=== PATIENT | male | born 1995 | race African-American/Black ===

== ENCOUNTER 2017-08-17 10:15 | Emergency (ER) | payer MEDICAID, OTHER ==
[~2017-08-17 10:15] MED LIST: Z.0.NO CURRENT MEDS
[2017-08-17] MEDS ORDERED: IOHEXOL 350 MG/ML 10 ML VIAL (for RAD DIAG) IVCONTRAST ONE (10:16)
[2017-08-17 10:17] VITALS: BP 159/71; PULSE 83; RESP 15; TEMP 98.7; O2SAT 97
[2017-08-17] MEDS ORDERED: SODIUM CHLORIDE 0.9% FLUSH 10 ML FLUSH IVF PRN (10:30)
[2017-08-17] MEDS ORDERED: HYDR-3516 PO (10:47)
[2017-08-17 10:54] LABS: AUTOMATED NEUTROPHIL # 2.6 TH/MM3 (1.8-7.7); BASOPHIL % 0.9 % (0.0-2.0); EOSINOPHIL # 0.2 TH/MM3 (0-0.4); EOSINOPHIL % 3.4 % (0.0-4.0); HEMATOCRIT 39.4 % (39.0-51.0); HEMO FLAGS DIFF FINAL; LYMPH % 35.1 % (9.0-44.0); LYMPHOCYTE # 1.8 TH/MM3 (1.0-4.8); MEAN CELL VOLUME 90.3 FL (80.0-100.0); MEAN CORPUSCULAR HEMOGLOBIN 29.1 PG (27.0-34.0); MEAN CORPUSCULAR HGB CONC 32.3 % (32.0-36.0); MONO % 9.4 % (0.0-8.0); NEUT % 51.2 % (16.0-70.0); PLATELET COUNT 241 TH/MM3 (150-450); RED BLOOD COUNT 4.37 MIL/MM3 (4.50-5.90); RED CELL DISTRIBUTION WIDTH 12.1 % (11.6-17.2)
--- NOTE | 2017-08-17 10:54 | PD ---
HPI . Lower abdominal pain Chief Complaint: GI Complaint Time Seen by Provider: 10:51 Travel History International Travel<30 days: No Contact w/Intl Traveler<30days: No Traveled to known affect area: No History of Present Illness HPI This patient presents with a chief complaint of lower abdominal pain for 4 days. He reports associated bloody diarrhea. He had emesis today. He states that the symptoms come and go. He is actually not currently having any symptoms. He reports that he was seen at an outside facility and was told that he had a viral syndrome. He states that they did not give him any antibiotics or any other medications. He subsequently presents to us. His abdominal pain is described as crampy and he rates it as 7-9/10. He has not noted any modifying factors. The patient reported to me that he was not given any medications the outside facility. The triage nurse learned that he was given a prescription for hydrocodone. PFSH Past Medical History Anemia: Yes Diminished Hearing: No Immunizations Current: Yes ?: Not Social History Alcohol Use: No Tobacco Use: No Substance Use: No Allergies-Medications (Allergen,Severity, Reaction): Coded Allergies: aspirin (Verified Allergy, Unknown, HIVES, 08/17/17) citric acid (Verified Allergy, Unknown, HIVES, 08/17/17) sodium bicarbonate (Verified Allergy, Unknown, HIVES, 08/17/17) Reported Meds & Prescriptions Reported Meds & Active Scripts Active Reported Hydrocodone-Acetaminophen 5-325 mg Tab 1 Tab PO Q6H PRN Review of Systems Except as stated in HPI: all other systems reviewed are Neg General / Constitutional: No: Fever, Chills Gastrointestinal: Positive: Nausea, Vomiting, Diarrhea, Abdominal Pain, Hematochezia Genitourinary: No: Urgency, Frequency, Dysuria Physical Exam Narrative GENERAL: Patient is awake and alert and does not appear to be in any distress. SKIN: warm/dry. No rashes. HEAD: Normocephalic. Atraumatic. EYES: Pupils equal and round. No scleral icterus. No injection or drainage. ENT: No nasal bleeding or discharge. Mucous membranes pink and moist. NECK: Trachea midline. Full range of motion without pain.. CARDIOVASCULAR: Regular rate and rhythm. Heart sounds are normal. RESPIRATORY: No accessory muscle use. Clear to auscultation. Breath sounds equal bilaterally. GASTROINTESTINAL: Abdomen soft. Nontender. Bowel sounds present. Nondistended. RECTAL: Technically difficult secondary to patient cooperation. No hemorrhoids noted. There was no significant stool in the rectal vault. MUSCULOSKELETAL: No obvious deformities. NEUROLOGICAL: Awake and alert. No obvious cranial nerve deficits. Motor grossly within normal limits. Normal speech. PSYCHIATRIC: Appropriate mood and affect; insight and judgment normal. Data Data Last Documented VS Vital Signs Date Time Temp Pulse Resp B/P (MAP) Pulse Ox O2 Delivery O2 Flow Rate FiO2 08/17/17 13:04 86 16 134/73 (93) 100 Room Air 08/17/17 10:17 98.7 Orders Orders Basic Metabolic Panel (Bmp) (08/17/17 10:26) Complete Blood Count With Diff (08/17/17 10:26) Prothrombin Time / Inr (Pt) (08/17/17 10:26) Act Partial Throm Time (Ptt) (08/17/17 10:26) Iv Access Insert/Monitor (08/17/17 10:26) Sodium Chloride 0.9% Flush (Ns Flush) (08/17/17 10:30) Ct Abd/Pel W Iv Contrast(Rout) (08/17/17 10:26) Iohexol 350 Inj (Omnipaque 350 Inj) (08/17/17 10:16) Labs Laboratory Tests Test 08/17/17 10:35 White Blood Count 5.0 TH/MM3 Red Blood Count 4.37 MIL/MM3 Hemoglobin 12.7 GM/DL Hematocrit 39.4 % Mean Corpuscular Volume 90.3 FL Mean Corpuscular Hemoglobin 29.1 PG Mean Corpuscular Hemoglobin Concent 32.3 % Red Cell Distribution Width 12.1 % Platelet Count 241 TH/MM3 Mean Platelet Volume 8.4 FL Neutrophils (%) (Auto) 51.2 % Lymphocytes (%) (Auto) 35.1 % Monocytes (%) (Auto) 9.4 % Eosinophils (%) (Auto) 3.4 % Basophils (%) (Auto) 0.9 % Neutrophils # (Auto) 2.6 TH/MM3 Lymphocytes # (Auto) 1.8 TH/MM3 Monocytes # (Auto) 0.5 TH/MM3 Eosinophils # (Auto) 0.2 TH/MM3 Basophils # (Auto) 0.0 TH/MM3 CBC Comment DIFF FINAL Differential Comment Prothrombin Time 11.4 SEC Prothromb Time International Ratio 1.0 RATIO Activated Partial Thromboplast Time 28.5 SEC Blood Urea Nitrogen 7 MG/DL Creatinine 0.96 MG/DL Random Glucose 89 MG/DL Calcium Level 9.5 MG/DL Sodium Level 139 MEQ/L Potassium Level 3.5 MEQ/L Chloride Level 104 MEQ/L Carbon Dioxide Level 27.0 MEQ/L Anion Gap 8 MEQ/L Estimat Glomerular Filtration Rate 119 ML/MIN MDM Medical Decision Making Medical Screen Exam Complete: Yes Emergency Medical Condition: Yes Differential Diagnosis Differential diagnosis of abdominal pain includes but is not limited to gastritis, pancreatitis, hepatitis, gastroenteritis, gallbladder disease, constipation, urinary retention, UTI, peptic ulcer disease, diverticulitis or appendicitis Narrative Course This patient presents with a four-day history of lower abdominal pain. He reports bloody stool. CBC & BMP Diagram 08/17/17 10:35 Calcium Level 9.[address] abd/pelvis>>Trace amount of free fluid in the right pelvis. Indeterminate etiology and significance. Otherwise negative study. The history, exam, diagnostic testing, and current condition do not suggest any significant pathology to warrant further testing, continued ED treatment, admission, or surgical evaluation at this point. The patient's condition is stable and appropriate for discharge. [facility] Point of Care Internal Pos. & Neg. Controls: Passed Fecal Specimen Occult Blood: Negative Diagnosis Primary Impression: Abdominal pain Qualified Codes: R10.30 - Lower abdominal pain, unspecified Patient Instructions: Abdominal Pain (ED), General Instructions Additional Instructions: Follow-up with primary care if symptoms persist Disposition: 01 DISCHARGE HOME Condition: Stable Nabila Thomas MD Aug 17, 2017 10:54
[2017-08-17 11:02] LABS: APTT (PATIENT) 28.5 SEC (24.3-30.1); PROTHROMBIN TIME - PATIENT 11.4 SEC (9.8-11.6)
[2017-08-17 11:09] LABS: POTASSIUM 3.5 MEQ/L (3.5-5.1)
[2017-08-17 13:04] VITALS: BP 134/73; PULSE 86; RESP 16; O2SAT 100
--- NOTE | 2017-08-17 13:52 | RADRPT ---
EXAM DATE/TIME: 08/17/2017 13:08 [facility] COMPARISON: No previous studies available for comparison. INDICATIONS : Lower abdomen pain for one day. IV CONTRAST: 95 cc Omnipaque 350 (iohexol) IV ORAL CONTRAST: No oral contrast ingested. RADIATION DOSE: 6.39 CTDIvol (mGy) MEDICAL HISTORY : None SURGICAL HISTORY : None. ENCOUNTER: Initial ACUITY: 1 day PAIN SCALE: 5/10 LOCATION: Bilateral lower quadrant TECHNIQUE: Volumetric scanning of the abdomen and pelvis was performed. Using automated exposure control and ad justment of the mA and/or kV according to patient size, radiation dose was kept as low as reasonably achievable to obtain optimal diagnostic quality images. DICOM format image data is available electro nically for review and comparison. FINDINGS: LOWER LUNGS: The visualized lower lungs are clear. LIVER: Homogeneous density without lesion. There is no dilation of the biliary tree. No calcified gallston es. Gallbladder seen this luminal structure without wall thickening SPLEEN: Normal size without lesion. PANCREAS: Within normal limits. KIDNEYS: Normal in size and shape. There is no mass, stone or hydronephrosis. ADRENAL GLANDS: Within normal limits. VASCULAR: There is no aortic aneurysm. BOWEL/MESENTERY: The stomach, small bowel, and colon demonstrate no acute abnormality. There is no free intraperitone al air or fluid. Trace amount of free fluid in the pelvis indeterminate etiology and significance. ABDOMINAL WALL: Within normal limits. RETROPERITONEUM: There is no lymphadenopathy. BLADDER: No wall thickening or mass. REPRODUCTIVE: Within normal limits. INGUINAL: There is no lymphadenopathy or hernia. MUSCULOSKELETAL: Within normal limits for patient age. CONCLUSION: Trace amount of free fluid in the right pelvis. Indeterminate etiology and significance. Otherwise ne gative study.. Antonio Man MD on August 17, 2017 at 13:46 Board Certified Radiologist. This report was verified electronically.
[2017-08-17] MEDS ORDERED: DICY10 PO (14:19)
[2017-08-17 14:22] VITALS: BP 134/73
== END 2017-08-17 14:28 | disposition home or self-care (01) ==
LOC: NEPD 10:15
DX: R10.30 Lower abdominal pain, unspecified (principal); R19.7 Diarrhea, unspecified; K92.1 Melena; R11.10 Vomiting, unspecified; Z86.2 Personal history of diseases of the blood and blood-forming organs and certain disorders involving the immune mechanism
CPT/HCPCS: 74177; 80048; 85025; 85610; 85730; 99285; Q9967